=== PATIENT | male | born 1935 | race Caucasian/White ===

== ENCOUNTER → 2019-02-01 | Outpatient (REF) | payer MEDICARE, OTHER ==
[2019-02-01 18:43] LABS: COMPLEMENT C3 135 MG/DL (90-180); COMPLEMENT C4 28 MG/DL (10-40); FERRITIN 35 NG/ML (26-388); IRON (FE) 35 UG/DL (65-175); PERCENT SATURATION 12.7 % (19.7-50.0); TOTAL IRON BINDING CAPACITY 275 UG/DL (250-450)
[2019-02-01 18:50] LABS: FOLATE > 24.0 NG/ML; VITAMIN B12 LEVEL 898 PG/ML
[2019-02-01 19:10] LABS: URINE TOTAL PROTEIN 274.8 MG/DL (0-12)
[2019-02-02 09:40] LABS: HEPATITIS B SURFACE ANTIBODY NEGATIVE (POSITIVE)
[2019-02-02 09:52] LABS: HEPATITIS B SURFACE ANTIGEN NEGATIVE (NEGATIVE)
[2019-02-02 10:18] LABS: HEPATITIS C VIRUS ABY INDEX 0.1 INDEX (<0.8)
[2019-02-02 10:19] LABS: HEPATITIS B CORE ANTIBODY IGM NEGATIVE (NEGATIVE)
[2019-02-06 13:58] LABS: ALBUMIN 3.95 GM/DL (3.29-5.55); ALBUMIN % 56.4 % (55.8-66.1); ALPHA-1-GLOBULIN % 5.8 % (2.9-4.9); ALPHA-1-GLOBULINS 0.41 GM/DL (0.17-0.41); ALPHA-2-GLOBULINS 0.98 GM/DL (0.42-0.99); BETA-1-GLOBULINS 0.42 GM/DL (0.28-0.60); BETA-2-GLOBULINS 0.43 GM/DL (0.19-0.55); BETA-2-GLOBULINS % 6.1 % (3.2-6.5); GAMMA GLOBULIN % 11.7 % (11.1-18.8); GAMMA GLOBULINS 0.82 GM/DL (0.65-1.58)
[2019-02-07 14:22] LABS: ANCA-ATYPICAL <1:20 titer (Neg:<1:20); ANTI DS-DNA AB <1:10 titer (.); ANTI-GLOMERULAR BASEMENT MEMB 3 units (0-20); ANTINUCLEAR ANTIBODIES DIRECT Negative (Negative); CYTOPLASMIC NEUTROP AB ANCA-C <1:20 titer (Neg:<1:20); PERINUCLEAR AB ANCA-P <1:20 titer (Neg:<1:20)
[2019-02-08 14:58] LABS: UPEP INTERPRETATION NO M-SPIKE NOTED; URINE VOLUME RANDOM ML
== END ==
LOC: M LAB REF 17:13
PROVIDERS: ATTEND Internal Medicine Nephrology
DX: D64.9 Anemia, unspecified (principal); R80.9 Proteinuria, unspecified

== ENCOUNTER → 2019-02-05 | Outpatient (REF) | payer MEDICARE, OTHER ==
[2019-02-05 15:28] LABS: CREATININE 24 HOUR, URINE 1279.9 MG/24HR (950-2500); TOTAL PROTEIN 24 HOUR URINE 3598.7 MG/24HR (50-150)
== END ==
LOC: M LAB REF 13:04
PROVIDERS: ATTEND Internal Medicine Nephrology
DX: R80.9 Proteinuria, unspecified (principal)

== ENCOUNTER → 2019-02-09 | Outpatient (CLI) | payer MEDICARE, OTHER ==
[~2019-02-09] MED LIST: ALLO10TA PO; AMLO25TA PO; ATOR40TA75 PO; CARV6.25 PO; FOLI1TAB11 PO; HYDR100T PO; NOVO1INJ4 SC; PANT40TA3 PO; TAMS1CAP17 PO; TORS10TA3 PO; XARE15TA PO
--- NOTE | 2019-02-09 20:21 | REP ---
RENAL AND BLADDER ULTRASOUND: Real-time sonographic evaluation of the kidneys performed and demonstrates both kidneys to be normal in size, with increased echotexture suggesting medical renal disease. Right kidney measures 11.3 x 6.6 x 5.2 cm and left kidney 11.1 x 5.5 x 5.3 cm. There is no hydronephrosis bilaterally. There are cystic areas in the upper pole of the right kidney, either two adjacent cysts or one cyst with a septation. Each component measures 3.0 x 1.9 x 1.5 cm and 3.5 x 2.5 x 2.9 cm. There is a cyst in the upper left kidney 1.2 cm in diameter. No renal stone is seen. Bladder wall appears mildly trabeculated. It measures 10.7 x 6.6 x 5.0 cm for a total volume of 231 mL. Postvoid residual is 178 mL, 77% of the original volume. No bladder wall mass or calculus is seen. IMPRESSION: No hydronephrosis. Increased echotexture of the kidneys suggest medical renal disease. Bilateral renal cysts. Mild trabeculations of the bladder wall with postvoid residual 77%. Electronically Signed by Scar cK MD 02/12/2019 11:33 A
== END ==
LOC: M RAD 11:46
PROVIDERS: ATTEND Internal Medicine Nephrology
DX: N18.4 Chronic kidney disease, stage 4 (severe) (principal); N28.1 Cyst of kidney, acquired

== ENCOUNTER 2019-03-22 11:49 | Outpatient (CLI) | payer MEDICARE, OTHER ==
[~2019-03-22] VITALS: Ht 180.3 cm; Wt 100.9 kg
[2019-03-22 11:50] VITALS: BP 142/55
[2019-03-22] MEDS ORDERED: FUROSEMIDE 40 MG/4 ML VIAL (J1940) IV ONE (12:15)
[2019-03-22] MEDS ORDERED: IRON SUCROSE 25 MG in NS 50 ML IV ONE (13:00)
[2019-03-22] MEDS ORDERED: IRON SUCROSE 175 MG in NS 250 ML IV ONE (13:00)
[2019-03-22 13:30] VITALS: BP 145/60
[2019-03-22 13:45] VITALS: BP 143/52
[2019-03-22 14:45] VITALS: BP 141/61
[2019-03-22 15:45] VITALS: BP 146/62
[2019-03-22] MEDS ORDERED: HYDR100T PO (15:51)
[2019-03-22] MEDS ORDERED: PANT40TA3 PO (15:51)
[2019-03-22] MEDS ORDERED: AMLO25TA PO (15:51)
[2019-03-22] MEDS ORDERED: ATOR40TA75 PO (15:51)
[2019-03-22] MEDS ORDERED: XARE15TA PO (15:51)
[2019-03-22] MEDS ORDERED: TAMS1CAP17 PO (15:51)
[2019-03-22] MEDS ORDERED: FOLI1TAB11 PO (15:51)
[2019-03-22] MEDS ORDERED: ALLO10TA PO (15:51)
[2019-03-22] MEDS ORDERED: NOVO1INJ4 SC (15:51)
[2019-03-22 16:15] VITALS: BP 140/60
== END 2019-03-22 16:20 | disposition home or self-care (01) ==
LOC: M INFU 11:49
PROVIDERS: ATTEND Internal Medicine Nephrology
DX: D50.9 Iron deficiency anemia, unspecified (principal); Z79.899 Other long term (current) drug therapy
CPT/HCPCS: 96365; 96366; 96367; 96375; J1756; J1940

== ENCOUNTER 2019-03-30 09:25 | Outpatient (CLI) | payer MEDICARE, OTHER ==
[~2019-03-30] VITALS: Ht 185.4 cm; Wt 101.0 kg
[~2019-03-30 09:25] MED LIST changes: -CARV6.25 PO; -TORS10TA3 PO
[2019-03-30 09:30] VITALS: BP 153/68
[2019-03-30] MEDS ORDERED: IRON SUCROSE 200 MG in NS 250 ML IV ONE (09:45)
[2019-03-30 10:30] VITALS: BP 135/63
[2019-03-30] MEDS ORDERED: TORS10TA3 PO (10:32)
[2019-03-30] MEDS ORDERED: CARV6.25 PO (10:32)
[2019-03-30 11:30] VITALS: BP 153/67
[2019-03-30 12:30] VITALS: BP 158/72
[2019-03-30 13:35] VITALS: BP 167/74
== END 2019-03-30 13:35 | disposition home or self-care (01) ==
LOC: M INFU 09:25
PROVIDERS: ATTEND Internal Medicine Nephrology
DX: D50.9 Iron deficiency anemia, unspecified (principal); Z88.8 Allergy status to other drugs, medicaments and biological substances; Z79.899 Other long term (current) drug therapy
CPT/HCPCS: 96365; 96366; J1756

== ENCOUNTER → 2019-04-27 | Outpatient (REF) | payer MEDICARE, OTHER ==
[~2019-04-27] MED LIST changes: +CARV6.25 PO; +TORS10TA3 PO
[2019-04-27 14:45] LABS: HEPATITIS B CORE ANTIBODY IGM NEGATIVE (NEGATIVE); HEPATITIS B SURFACE ANTIBODY NEGATIVE (POSITIVE); HEPATITIS B SURFACE ANTIGEN NEGATIVE (NEGATIVE)
== END ==
LOC: M LAB REF 12:49
PROVIDERS: ATTEND Internal Medicine Nephrology
DX: N18.4 Chronic kidney disease, stage 4 (severe) (principal); R80.9 Proteinuria, unspecified